=== PATIENT | female | born 1990 | race Two or more races ===

== ENCOUNTER 2019-12-07 19:46 | Emergency (ER) | payer SELFPAY ==
[~2019-12-07] VITALS: Ht 165.1 cm; Wt 104.3 kg
--- NOTE | 2019-12-07 20:14 | NUR ---
PT CAME TO ER BED 10 C/O HEADACHE FOR 10x DAYS. PT STATES THAT SHE FEELS PAIN ON TEMPLES OF THE HEAD, BACK OF HER HEAD AND NECK PAIN. PT STATES THAT SHE WILL HAVE BLURRY VISION AND DIZZINESS WITH HER HEADACHE. AAOX4. NO SOB. BREATHING EVENLY AND UNLABORED ON ROOM AIR. CONNECTED TO MONITOR.
[2019-12-07] MEDS ORDERED: PROCHLORPERAZINE EDISYLATE 10 MG/2 ML VIAL ONE (20:16)
[2019-12-07] MEDS ORDERED: ONDANSETRON HCL/PF 4 MG/2 ML VIAL ONE (20:16)
[2019-12-07] MEDS ORDERED: KETOROLAC TROMETHAMINE INJ 30 MG/ML VIAL ONE (20:16)
--- NOTE | 2019-12-07 20:21 | NUR ---
PATIENT SIGNED WAIVER FORM. LAST KNOWN MENSTRUAL PERIOD. CURRENTLY ON PERIOD, STARTED ON 12/06/2019.
[2019-12-07 20:29] LABS: BASOPHILS # (AUTO) 0.1 /CMM (0.0-0.2); BASOPHILS % (AUTO) 0.6 % (0.0-2.0); EOSINOPHILS % (AUTO) 1.5 % (0.0-6.0); HEMATOCRIT 36 % (33-45); LYMPHOCYTES # (AUTO) 2.8 /CMM (0.8-4.8); LYMPHOCYTES % (AUTO) 31.7 % (20.0-44.0); MEAN CORPUSCULAR HGB CONC 33 g/dl (31.0-36.0); MEAN CORPUSCULAR VOLUME 89 fL (82-100); MONOCYTES # (AUTO) 0.7 /CMM (0.1-1.30); MONOCYTES % (AUTO) 7.5 % (2.0-12.0); NEUTROPHILS # (AUTO) 5.1 /CMM (1.8-8.9); NEUTROPHILS % (AUTO) 58.7 % (43.0-81.0); PLATELET COUNT (AUTO) 255 /CMM (150-450); RED BLOOD CELL COUNT(AUTO) 4.05 MIL/uL (4.0-5.2); WHITE BLOOD COUNT (AUTO) 8.7 K/uL (4.3-11.0)
[2019-12-07] MEDS ORDERED: KETOROLAC TROMETHAMINE INJ 30 MG/ML VIAL IV ONE (20:30)
[2019-12-07] MEDS ORDERED: ONDANSETRON HCL/PF 4 MG/2 ML VIAL IV ONE (20:30)
[2019-12-07] MEDS ORDERED: IV NS 0.9% 1,000 ML BAG IV ONE (20:30)
[2019-12-07] MEDS ORDERED: PROCHLORPERAZINE EDISYLATE 10 MG/2 ML VIAL IVP ONE (20:30)
[2019-12-07 20:37] LABS: CALCIUM, SERUM 8.4 mg/dL (8.5-10.1); CREATININE 0.7 mg/dL (0.6-1.3); POTASSIUM 4.4 mmol/L (3.5-5.1)
--- NOTE | 2019-12-07 21:31 | NUR ---
IV removed. Catheter intact and site benign. Pressure and 4x4 applied to site. No bleeding noted. Patient discharged to home in stable condition. Written and verbal after care instructions given. Patient verbalizes understanding of instruction.
[2019-12-07 21:32] VITALS: BP 124/73
== END 2019-12-07 21:32 | disposition home or self-care (01) ==
LOC: ER 19:52
DX: R51 Headache (principal); R42 Dizziness and giddiness
CPT/HCPCS: 36415; 80048; 85025; 96361; 96374; 96375; 99283; J0780; J1885; J2405; J7030